=== PATIENT | female | born 1950 | race Caucasian/White ===

== ENCOUNTER 2019-06-25 15:10 | Emergency (ER) | payer MEDICARE, MEDICAID ==
[~2019-06-25] VITALS: Ht 167.6 cm; Wt 62.3 kg
[~2019-06-25 15:10] MED LIST: ATOR20TA66 PO; PANT-47 PO; PREVCR VG; PROP20TA6 PO; VENL150C2 PO; VENL75CA55 PO
[2019-06-25 15:22] VITALS: BP 128/69
== END 2019-06-25 16:34 | disposition home or self-care (01) ==
LOC: ER 15:11
DX: H53.2 Diplopia (principal); H53.8 Other visual disturbances; R51 Headache; I25.2 Old myocardial infarction; F41.9 Anxiety disorder, unspecified; F32.9 Major depressive disorder, single episode, unspecified; F17.200 Nicotine dependence, unspecified, uncomplicated; F15.90 Other stimulant use, unspecified, uncomplicated; Z60.2 Problems related to living alone; Z79.899 Other long term (current) drug therapy
CPT/HCPCS: 99281